=== PATIENT | male | born 1955 | race Caucasian/White ===

== ENCOUNTER 2019-06-23 11:05 | Emergency (ER) | payer MEDICARE ==
[~2019-06-23] VITALS: Ht 180.3 cm; Wt 84.4 kg
[2019-06-23 11:08] VITALS: BP 142/60
== END 2019-06-23 12:32 | disposition home or self-care (01) ==
LOC: ER 11:09
DX: M25.511 Pain in right shoulder (principal); I48.91 Unspecified atrial fibrillation; Z96.649 Presence of unspecified artificial hip joint; V89.2XXA Person injured in unspecified motor-vehicle accident, traffic, initial encounter; Y93.55 Activity, bike riding; Y92.488 Other paved roadways as the place of occurrence of the external cause; Y99.8 Other external cause status
CPT/HCPCS: 73030-TC